=== PATIENT | male | born 1945 | race Caucasian/White ===

== ENCOUNTER → 2024-05-01 | Outpatient (CLI) | payer MEDICARE, SELFPAY ==
--- NOTE | 2024-05-01 17:32 | DI.NM.S_ITS ---
DATE OF SERVICE: 05/01/2024 EXERCISE STRESS TEST INDICATIONS: Coronary artery calcification. CARDIAC STRESS: The patient underwent exercise stress test under the supervision of an attending staff. He walked on Andres protocol for 7 minutes and 19 seconds, achieved maximum heart rate of 142, which was 99% of target heart rate. Resting blood pressure 140/80 and peak blood pressure 170/102 mmHg. 10.1 METs of workload. JALIL -22%. Baseline rhythm was sinus and some isolated PACs. During stress, patient has PACs as well as PVCs without any ventricular tachycardia or AFib. In recovery, patient has PACs and PVCs as well. No chest pain or anginal symptoms. CONCLUSION: Exercise stress test is negative for inducible ischemia. Good exercise tolerance. Mildly hypertensive blood pressure response. No anginal symptoms. Resting premature atrial contractions , seen during exercise and recovery as well. The patient has isolated premature ventricular contractions as well without any ventricular tachycardia or atrial fibrillation. Overall, low-risk exercise stress test. Erich Rios - SLIME/nakul/MACHELLE doc#: [id number]/job#: [id number] dd: 05/01/2024 16:28:00 dt: 05/01/2024 17:21:00 DICTATING MD/COPIES TO: Rodrigo Schreiber MD COPIES MNE: CHANDRAKANT;
== END ==
LOC: NUCM 14:11
PROVIDERS: PCP Family Medicine; Referring Provider Internal Medicine Cardiovascular Disease; Visit Provider Internal Medicine Cardiovascular Disease
DX: I25.10 Atherosclerotic heart disease of native coronary artery without angina pectoris (principal)
CPT/HCPCS: 93017